=== PATIENT | male | born 1965 | race African-American/Black ===

== ENCOUNTER 2016-08-08 12:35 | Emergency (ER) ==
[2016-08-08] MEDS ORDERED: NORCO-10 PO ONE (13:14)
[2016-08-08] MEDS ORDERED: KEFZOL IM ONE (13:14)
[2016-08-08] MEDS ORDERED: DIPHTHERIA/TETANUS ADULT IM ONE (13:14)
[2016-08-08] MEDS ORDERED: ZOFRAN ODT PO ONE (13:14)
--- NOTE | 2016-08-08 13:41 | PROVIDER DOCUMENTATION ---
HPI-Musculoskeletal Pain/Inj - GENERAL Chief Complaint: Work Related Injury Stated Complaint: WORK RELATED Time Seen by Provider: 08/08/16 12:47 Source: patient - HX OF PRESENT ILLNESS-MUSKULOSKELTAL Nature of Presenting Problem: Pt presents today c complaints of left 2nd digit pain and distal amputation after smashing his finger between two boards. Reports exposed bone. No active bleeding. No other injuries. Tetanus is not up to date. Quality of Pain: reports: sharp, throbbing Severity in ED: moderate Onset/Duration: 1 hour ago Timing: still present, constant Modifying Factors: improves with: movement, palpation Any recent injury?: Yes Locality of Occurance: Work Similar Symptoms Previously?: No Recently seen or treated by another doctor?: No Review of Systems - Adult - REVIEW OF SYSTEMS - ADULT Constitutional: reports: no symptoms reported. denies: chills, fever Eyes: reports: no symptoms reported. denies: discharge, dry eyes Ears, Nose, Mouth & Throat: reports: no symptoms reported. denies: ear discharge, ear pain Cardiovascular: reports: no symptoms reported. denies: chest pain, edema Respiratory: reports: no symptoms reported. denies: chronic cough, dyspnea on exertion Gastrointestinal: reports: no symptoms reported. denies: abdominal pain, hematemesis Genitourinary: reports: no symptoms reported. denies: dysuria, discharge Musculoskeletal: reports: see HPI, bone pain. denies: back pain, muscle aches Integumentary: reports: see HPI. denies: hives, hair loss Neurological: reports: no symptoms reported. denies: ataxia, dizziness/vertigo , headache/migraines Psychiatric: reports: no symptoms reported. denies: anxiety, anti-depressant use Endocrine: reports: no symptoms reported Hematologic/Lymphatic: reports: no symptoms reported Allergic/Immunologic: reports: no symptoms reported All Other Systems: Reviewed and Negative Past History - Adult - PAST MEDICAL HISTORY-ADULT Review of Records: reports: Old Records Reviewed, Nursing Assessment Review, Medications Reviewed, Social history reviewed & non-contributory. Major Childhood Illnesses: reports: denies history Cardiovascular: reports: denies history Respiratory: reports: denies history Gastrointestinal: reports: denies history Obstetrical/Gynecological: reports: denies history Genitourinary: reports: denies history Musculoskeletal: reports: denies history Neurological: reports: denies history Endocrine/Immune: reports: denies history Other Conditions: reports: denies history Physical Exam-Injury Related - Physical Exam-Injury Related Initial Vital Signs Reviewed: Yes General Appearance: appears well, alert, no apparent distress Eyes: PERRL/EOMI, pink conjunctivae Head, Ears, Nose, Mouth & Throat: normocephalic/atraumatic, normal ENT inspection, TMs normal, pharynx normal Neck: non-tender, full range of motion, supple, normal inspection Respiratory: chest non-tender, lungs clear, normal breath sounds, no pleuratic chest pain, no respiratory distress, no accessory muscle use Cardiovascular: normal peripheral pulses, regular rate, rhythm, no edema, no gallop, no JVD, no murmur Abdominal Exam: normal bowel sounds, non tender, soft, no organomegaly, no pulsatile mass Lymphatic: no adenopathy Back Exam: normal inspection, no CVA tenderness, no vertebral tenderness Extremity: normal gait, no pedal edema, no calf tenderness, normal capillary refill, pelvis stable, deformity, tenderness, other (distal tip amputation L 2nd digit) Integumentary: normal color, warm/dry, other (see hpi) Neurologic: catalogue and special products manager II-XII nml as tested, no motor/sensory deficits Psych/Mental Status: AL, normal mood/affect, normal thought content, normal thought process, oriented x 3 Progress - XRAY 1 XRAY: Left XRAY Study: Hand XRAY Interpretation: Left 2nd digit distal tip amputation - CONSULTS/PCP/HOSPITALIST Notification #1 *Consult/PCP/Hospitalist*: Dr. Hoffman Time Discussed: 13:39 Consult Disposition: F/U in office (Saturday) Departure - Departure Time of Disposition Order: 13:39 DIAGNOSIS: Traumatic amputation of finger tip Qualifiers: Encounter type: initial encounter Qualified Code(s): S68.129A - Partial traumatic metacarpophalangeal amputation of unspecified finger, initial encounter Disposition: HOME Certified Medical Emergency: Emergent Condition: Good Additional Instructions: Take medication as prescribed. Keep area clean and dry. No heavy lifting. Follow up on Saturday with Dr. Hoffman. Return to the ER for any new or worsening symptoms. ED Follow Up Instructions: You have been treated by a care provider in the Emergency Department. These instructions are being provided to you so you can have an understanding of how to care for yourself upon discharge. Upon discharge from the Emergency Department, you are responsible for making arrangements for follow-up care by a physician of your choice. Take all prescribed medications as directed. Return to the Emergency Department immediately for any new or worsening symptoms. You may call the Physician Referral phone number at [phone] to obtain a list of Physicians who are taking new patients. Prescriptions: Cephalexin [Keflex] 500 mg PO Q6HR #28 capsule Hydrocodone/APAP 7.5 mg/325 mg [[place]-7.5] 1 each PO Q6H PRN PRN #12 tablet PRN Reason: Pain Ondansetron HCl [Zofran] 4 mg PO Q4H PRN PRN #20 tablet PRN Reason: Nausea Referrals: None,PCP [Primary Care Provider] - Blake oHffman MD [STAFF PHYSICIAN] - Attestation - Physician/ Mid-level Attestation Patient care was provided by Mid-level provider (ANIMAL RIDES MANAGER/PA):: Yes Mid-level provider:: Kyler Calero Mid-level documentation review:: The Mid-level provider documentation, treatment plan and medical decision making was reviewed by the physician who agrees with all treatment and medical decision making by the [facility].
--- NOTE | 2016-08-08 13:44 | Diag Imaging Result Document ---
PROCEDURE NAME: HAND COMPLETE LEFT - 08/08/2016 LEFT HAND, THREE VIEWS: FINDINGS: There has been partial amputation of the fingertip of the index finger, including portions of the tuft. No additional acute bony abnormalities are present. IMPRESSION: Partial amputation of the distal tuft of the index finger.
[2016-08-08] MEDS ORDERED: XYLOCAINE 1% ONE (13:54)
[2016-08-08] MEDS ORDERED: STERILE WATER INJ. ONE (14:01)
[2016-08-08 14:15] VITALS: BP 155/97
== END 2016-08-08 15:09 | disposition home or self-care (01) ==
LOC: ED 12:35
DX: S68.121A Partial traumatic metacarpophalangeal amputation of left index finger, initial encounter (principal); W23.0XXA Caught, crushed, jammed, or pinched between moving objects, initial encounter; M79.645 Pain in left finger(s); Z23 Encounter for immunization
CPT/HCPCS: 90471; 90714; 96372; J0690

== ENCOUNTER 2016-08-09 07:00 | Emergency (ER) ==
[2016-08-09 07:11] VITALS: BP 130/74
--- NOTE | 2016-08-09 09:45 | PROVIDER DOCUMENTATION ---
HPI-Musculoskeletal Pain/Inj - GENERAL Chief Complaint: Wound Recheck Stated Complaint: FINGER LACERATION Time Seen by Provider: 08/09/16 07:10 Source: patient - HX OF PRESENT ILLNESS-MUSKULOSKELTAL Nature of Presenting Problem: 51 y/o M presents to ED cc of needing his finger dressing changed. Pt was seen in ED 1 day ago due to distal tip of index finger amp. Pt states he was chased by a cow and forced to jump over a fence where is finger was caught. Pt came today stating he needs his dressing on his finger changed. Quality of Pain: reports: aching Severity in ED: mild Onset/Duration: 24 hours ago Timing: still present Modifying Factors: improves with: nothing - UPPER EXTREMITY PAIN/INJURY Extremities Pain Location: 2nd finger: left Context / Method of Injury: reports: other (caught on fence AMP) Associated Symptoms: denies: sensory/motor loss, tingling in upper ext Review of Systems - Adult - REVIEW OF SYSTEMS - ADULT Constitutional: denies: chills, fever Cardiovascular: denies: chest pain, palpitations Gastrointestinal: denies: abdominal pain, diarrhea, nausea, vomiting Neurological: denies: dizziness/vertigo, headache/migraines Past History - Adult - PAST MEDICAL HISTORY-ADULT Review of Records: reports: Old Records Reviewed, Nursing Assessment Review Major Childhood Illnesses: reports: denies history Cardiovascular: reports: denies history Respiratory: reports: denies history Gastrointestinal: reports: denies history Obstetrical/Gynecological: reports: denies history Genitourinary: reports: denies history Musculoskeletal: reports: denies history Neurological: reports: denies history Endocrine/Immune: reports: denies history Other Conditions: reports: denies history - IMMUNIZATION STATUS Childhood Immunizations: See Nurse Assessment Flu Vaccine: See Nurse Assessment - SOCIAL HISTORY Smoking: quit greater than 1 year Substance Use: denies Physical Exam-Injury Related - Physical Exam-Injury Related General Appearance: appears well, alert, no apparent distress Eyes: PERRL/EOMI, pink conjunctivae Head, Ears, Nose, Mouth & Throat: normocephalic/atraumatic, moist mucous membranes, normal ENT inspection Neck: non-tender, full range of motion, supple, normal inspection Respiratory: chest non-tender, lungs clear, normal breath sounds Cardiovascular: normal peripheral pulses, no edema, tachycardia Abdominal Exam: normal bowel sounds, non tender, soft, no organomegaly, no pulsatile mass Lymphatic: no adenopathy Back Exam: normal inspection, no CVA tenderness, no vertebral tenderness Extremity: normal range of motion, non-tender, normal gait, normal inspection, no pedal edema, no calf tenderness, normal capillary refill, pelvis stable Integumentary: normal color, warm/dry Neurologic: climbing guide II-XII nml as tested, grossly normal, no motor/sensory deficits Psych/Mental Status: AL, normal mood/affect, normal thought content, normal thought process, oriented x 3 Progress - PLAN OF CARE/RESULTS Progress/Plan/Lab Results: PLAN: CHANGE PT DRESSING REFER TO ORTHO AND CHANGE DRESSING Departure - Departure Time of Disposition Order: 08:10 DIAGNOSIS: Amputation finger Qualifiers: Encounter type: initial encounter Qualified Code(s): S68.119A - Complete traumatic metacarpophalangeal amputation of unspecified finger, initial encounter Disposition: HOME 01 Certified Medical Emergency: Emergent Condition: Stable Referrals: Blake Hoffman MD [STAFF PHYSICIAN] - Instructions: Traumatic Finger Amputation Attestation - Scribe Verification/Attestation Scribe:: Candice Workman Acting as Scribe for:: Adonay Land Scribe documention review:: This chart was documented by a scribe and accurately reflects the service the provider performed and the decisions made by the provider.
== END 2016-08-09 07:52 | disposition home or self-care (01) ==
LOC: ED 07:00
DX: Z48.00 Encounter for change or removal of nonsurgical wound dressing (principal); S68.119A Complete traumatic metacarpophalangeal amputation of unspecified finger, initial encounter
CPT/HCPCS: 99281

== ENCOUNTER 2016-10-01 11:57 | Emergency (ER) | payer OTHER ==
[2016-10-01 12:07] VITALS: BP 124/84
[2016-10-01] MEDS ORDERED: BICILLIN L-A IM ONE (12:52)
--- NOTE | 2016-10-01 12:56 | PROVIDER DOCUMENTATION ---
HPI-EENT General - General Chief Complaint: Sore Throat Stated Complaint: sore throat Time Seen by Provider: 10/01/16 12:10 Source: patient Allergies/Adverse Reactions: Patient Allergies Allergy/AdvReac Type Severity Reaction Status Date / Time No Known Allergies Allergy Verified 10/01/16 12:44 Home Medications: Home Medication List Medication Instructions Recorded Confirmed Last Taken Type Diphenhyramine/Al&mg Oh/Lido [Mbx 15 ml MT 4XDAY PRN PRN #1 bottle 10/01/16 Unknown Rx Solution] - History of Present Illness-EENT General Nature of Presenting Problem: 51 y/o BM c/o sore throat x 2 days. Pt states it started 2 days ago when he was eating a corndog. States dysphagia. Denies cough, fever/chills, N/V/D/C, sick contacts. Review of Systems - Adult - REVIEW OF SYSTEMS - ADULT Constitutional: reports: no symptoms reported. denies: chills, fever Eyes: reports: no symptoms reported. denies: blurred vision, double vision Ears, Nose, Mouth & Throat: reports: see HPI, throat pain. denies: ear pain, nose pain Cardiovascular: reports: no symptoms reported. denies: chest pain, palpitations Respiratory: reports: no symptoms reported. denies: cough, shortness of breath Gastrointestinal: reports: no symptoms reported. denies: abdominal pain, diarrhea, nausea, vomiting Genitourinary: reports: no symptoms reported. denies: dysuria, frequency Musculoskeletal: reports: no symptoms reported. denies: joint pain, joint swelling Integumentary: reports: no symptoms reported. denies: nail changes, rash Neurological: reports: no symptoms reported. denies: numbness, paresthesia Psychiatric: reports: no symptoms reported Endocrine: reports: no symptoms reported. denies: cold intolerance, heat intolerance Hematologic/Lymphatic: reports: no symptoms reported. denies: easy bruising, prolonged bleeding Allergic/Immunologic: reports: no symptoms reported All Other Systems: Reviewed and Negative Past History - Adult - PAST MEDICAL HISTORY-ADULT Review of Records: reports: Nursing Assessment Review, Medications Reviewed Major Childhood Illnesses: reports: denies history Cardiovascular: reports: denies history Respiratory: reports: denies history Gastrointestinal: reports: denies history Obstetrical/Gynecological: reports: denies history Genitourinary: reports: denies history Musculoskeletal: reports: denies history Neurological: reports: denies history Endocrine/Immune: reports: denies history Other Conditions: reports: denies history - IMMUNIZATION STATUS Childhood Immunizations: See Nurse Assessment Flu Vaccine: See Nurse Assessment - SOCIAL HISTORY Smoking: cigarettes, less than 1 pack/day Provider spent 3-5 mins advising pt. on dangers of tobacco.: Discussed manners to quit use, and f/u contacts for add'l counseling. Physical Exam- EENT - Physical Exam EENT Initial Vital Signs Reviewed: Yes General Appearance: alert, mild distress Eye Exam: bilateral eye: normal inspection Ear Exam: bilateral ear: auricle normal Nasal Exam: normal inspection. negative: sinus tenderness Throat Exam: normal mouth inspection, tonsillar swelling. negative: pharynx normal (erythema), uvula swelling Neck: full range of motion, supple, normal inspection, lymphadenopathy (ant. cervical) Respiratory: lungs clear, normal breath sounds. negative: crackles, rales, rhonchi, stridor, wheezing Cardiovascular: regular rate, rhythm. negative: bradycardia, tachycardia Lymphatic: negative: cervical node tenderness Back Exam: normal inspection Extremity: normal gait Integumentary: normal color, normal turgor, warm/dry Neurologic: negative: aphasia Psych/Mental Status: normal mood/affect, normal thought content, normal thought process, oriented x 3 Progress - PLAN OF CARE/RESULTS Progress/Plan/Lab Results: Orders Category Date Time Status DIRECT STREP Stat Lab 10/01/16 12:06 Completed Penicillin G Benzathine [Bicillin l-A] Med 10/01/16 12:52 Discontinued 1,200,000 unit IM NOW ONE Vital Signs Temp Pulse Resp BP Pulse Ox 10/01/16 12:04 98.6 F 71 18 124/84 97 No Known Allergies Allergy (Verified 10/01/16 12:44) Diphenhyramine/Al&mg Oh/Lido [Mbx Solution] 15 ml MT 4XDAY PRN PRN #1 bottle 01/12 strep - Discussed results and medication use with pt. Pt states would rather take one time shot than wait to fill medications until he has the money. Departure - Departure Time of Disposition Order: 12:53 DIAGNOSIS: Pharyngitis Qualifiers: Pharyngitis/tonsillitis etiology: unspecified etiology Qualified Code(s): J02.9 - Acute pharyngitis, unspecified Disposition: HOME 01 Certified Medical Emergency: Emergent Condition: Stable Additional Instructions: Take medications as directed. Return if symptoms get worse. Follow up with PCP in 7 days for recheck. ED Follow Up Instructions: You have been treated by a care provider in the Emergency Department. These instructions are being provided to you so you can have an understanding of how to care for yourself upon discharge. Upon discharge from the Emergency Department, you are responsible for making arrangements for follow-up care by a physician of your choice. Take all prescribed medications as directed. Return to the Emergency Department immediately for any new or worsening symptoms. You may call the Physician Referral phone number at [phone] to obtain a list of Physicians who are taking new patients. Prescriptions: Diphenhyramine/Al&mg Oh/Lido [Mbx Solution] 15 ml MT 4XDAY PRN PRN #1 bottle PRN Reason: Pain Referrals: None,PCP [Primary Care Provider] - Forms: Return to School/Parent Work Instructions: Pharyngitis Attestation - Physician/ JOHN Attestation Patient care was provided by Advanced Practice Provider:: Yes Advanced Practice Provider:: Linda Newton Advanced Practice Provider documentation review:: The Mid-level provider documentation, treatment plan and medical decision making was reviewed by the physician who agrees with all treatment and medical decision making by the [facility].
== END 2016-10-01 13:25 | disposition home or self-care (01) ==
LOC: ED 11:57
DX: J02.9 Acute pharyngitis, unspecified (principal); R13.10 Dysphagia, unspecified; F17.210 Nicotine dependence, cigarettes, uncomplicated; Z71.6 Tobacco abuse counseling; R59.0 Localized enlarged lymph nodes
CPT/HCPCS: 87081; 87430; 96372; J0561